=== PATIENT | female | born 1990 | race Caucasian/White ===

== ENCOUNTER → 2016-06-08 | Outpatient (CLI) | payer OTHER | LOC: BHSO 08:55 | DX: F33.1 Major depressive disorder, recurrent, moderate (principal) | CPT/HCPCS: 90791-AI ==

== ENCOUNTER → 2016-06-23 | Outpatient (CLI) | payer OTHER | LOC: BHSO 10:15 | DX: F33.42 Major depressive disorder, recurrent, in full remission (principal) ==